=== PATIENT | female | born 1960 | race Caucasian/White ===

== ENCOUNTER 2019-02-18 15:00 | Inpatient (IN) | payer MEDICARE, OTHER ==
[~2019-02-18] VITALS: Ht 312.4 cm; Wt 69.9 kg
[2019-02-18] MEDS ORDERED: METOCLOPRAMIDE HCL 10MG/2ML VIAL IV STA (15:30)
[2019-02-18] MEDS ORDERED: ONDANSETRON HCL 4MG/2ML INJ IV STA (15:30)
[2019-02-18] MEDS ORDERED: SODIUM CHLORIDE 0.9% 1,000 ML IV ONE (15:30)
[2019-02-18 15:57] LABS: BASOPHILS % 0.3 % (0.0-2.0); CHLORIDE 112 mEq/L (98-107); EOSINOPHILS % 0.7 % (0.0-5.0); LYMPHOCYTES % 38.9 % (20.0-50.0); MEAN CORPUSCULAR HEMOGLOBIN 28.9 pg (28.0-32.0); MEAN CORPUSCULAR VOLUME 86.5 fL (81.0-99.0); MEAN PLATELET VOLUME 6.9 fl (7.4-10.4); MONOCYTES % 4.6 % (2.0-8.0); NEUTROPHILS % 55.5 % (40.0-76.0); PLATELET 415 x1000/uL (130-400); RED BLOOD CELL COUNT 4.85 mill/uL (4.2-5.4); RED CELL DISTRIBUTION WIDTH 13.8 % (11.6-14.6)
[2019-02-18 15:59] LABS: PROTHROMBIN TIME 10.5 sec (9.6-11.0)
[2019-02-18 16:16] LABS: HCG SCREEN INDETERMINATE
[2019-02-18 16:21] LABS: CLARITY URINE TURBID (CLEAR); COLOR URINE YELLOW (YELLOW); KETONES URINE 1+ (NEGATIVE); LEUKOCYTE ESTERASE URINE TRACE (NEGATIVE); NITRITE URINE NEGATIVE (NEGATIVE); OCCULT BLOOD URINE NEGATIVE (NEGATIVE); PH URINE 7.5 (4.5-8.0); PROTEIN URINE TRACE (NEGATIVE); SPECIFIC GRAVITY URINE 1.016 (1.005-1.030)
[2019-02-18] MEDS ORDERED: MORPHINE SULFATE 4 MG/ML CPJ (NOT FOR IM USE) IV ONE (18:15)
[2019-02-18] MEDS ORDERED: METRONIDAZOLE 500 MG PREMIX 100 ML IV ONE (18:15)
[2019-02-18] MEDS ORDERED: CEFTRIAXONE 1 G PREMIX 50 ML IV ONE (18:15)
[2019-02-18] MEDS ORDERED: ONDANSETRON HCL 4MG/2ML INJ IV ONE (18:15)
[2019-02-18 21:30] VITALS: BP 107/66
[2019-02-18 22:12] VITALS: BP 107/66
[2019-02-19] VITALS: BP 104/65
[2019-02-19] MEDS ORDERED: KETOROLAC 30MG/ML VIAL IV PRN
[2019-02-19] MEDS ORDERED: METRONIDAZOLE 500 MG PREMIX 100 ML IV SCH (02:00)
[2019-02-19 04:00] VITALS: BP 96/56
[2019-02-19] MEDS ORDERED: TOPI200T15 MT (04:00)
[2019-02-19] MEDS ORDERED: DIPH50CA38 PO (04:00)
[2019-02-19] MEDS ORDERED: OXYB5TAB11 MT (04:00)
[2019-02-19] MEDS ORDERED: PRAZ1CAP5 MT (04:00)
[2019-02-19] MEDS ORDERED: DIPH50CA4 PO (04:00)
[2019-02-19] MEDS ORDERED: BENZ2TAB7 MT (04:00)
[2019-02-19] MEDS ORDERED: LURA120T PO (04:00)
[2019-02-19] MEDS ORDERED: TRAZ150T78 MT (04:00)
[2019-02-19] MEDS ORDERED: OMEP20TA2 MT (04:00)
[2019-02-19] MEDS ORDERED: NAPR-681 MT (04:00)
[2019-02-19] MEDS ORDERED: HYDR100C2 MT (04:00)
[2019-02-19] MEDS: ONDANSETRON HCL 4MG/2ML INJ IV PRN ×3 (04:32→20:28)
[2019-02-19] MEDS: METRONIDAZOLE 500 MG PREMIX 100 ML IV SCH ×3 (06:00→23:29)
[2019-02-19] MEDS ORDERED: SODIUM CHLORIDE 0.9% 1,000 ML IV SCH ×2 (06:00)
[2019-02-19] MEDS ORDERED: BUPIVACAINE HCL 0.5% (5MG/ML) 50ML ONE (07:46)
[2019-02-19] MEDS ORDERED: SKIN ADHESIVE 0.7 GM EA TOP ONE (07:46)
[2019-02-19 08:00] VITALS: BP 105/69
[2019-02-19] MEDS ORDERED: METRONIDAZOLE 500 MG PREMIX 0 ML IV ONE (08:03)
[2019-02-19] MEDS ORDERED: LEVOFLOXACIN 500MG PREMIX 100 ML IV ONE (08:03)
[2019-02-19] MEDS: ENOXAPARIN 40MG/0.4ML SYR SUBCUT SCH (08:18)
[2019-02-19] MEDS ORDERED: PROPOFOL 200MG/20ML VIAL IV ONE (09:23)
[2019-02-19] MEDS ORDERED: MIDAZOLAM HCL 2 MG/2 ML VIAL ONE (09:23)
[2019-02-19] MEDS ORDERED: FENTANYL CITRATE/PF 50MCG/ML 2ML VIAL ONE (09:23)
[2019-02-19] MEDS ORDERED: SUCCINYLCHOLINE CHLORIDE 200MG/10ML IV ONE ×2 (09:24→09:37)
[2019-02-19] MEDS ORDERED: ROCURONIUM BROMIDE 10MG/ML VIAL 5ML IV ONE (09:24)
[2019-02-19] MEDS ORDERED: LIDOCAINE HCL/PF 1% 10 MG/ML 5ML VIAL ONE (09:24)
[2019-02-19] MEDS ORDERED: ACETAMINOPHEN 325MG TABLET PO PRN (09:30)
[2019-02-19] MEDS ORDERED: ONDANSETRON HCL 4MG/2ML INJ IV PRN (09:30)
[2019-02-19] MEDS ORDERED: HYDROCODONE/ACETAMINOPHEN 5/325MG TABLET PO PRN (09:30)
[2019-02-19] MEDS ORDERED: MORPHINE SULFATE 4 MG/ML CPJ (NOT FOR IM USE) IV PRN (09:30)
[2019-02-19] MEDS ORDERED: NEOSTIGMINE METHYLSULFATE 1MG/ML 10 ML VIAL ONE (10:04)
[2019-02-19] MEDS ORDERED: GLYCOPYRROLATE 0.2 MG/ML 2ML VIAL ONE (10:04)
[2019-02-19] MEDS ORDERED: ONDANSETRON HCL 4MG/2ML INJ ONE (10:22)
[2019-02-19] MEDS ORDERED: DEXAMETHASONE 4MG/ML 1ML VIAL ONE (10:29)
[2019-02-19] MEDS ORDERED: HYDROMORPHONE HCL/PF 2MG/ML CPJ ONE (11:01)
[2019-02-19] MEDS: HYDROMORPHONE HCL/PF 2MG/ML CPJ IV PRN ×4 (11:03→11:30)
[2019-02-19] MEDS: DEXT 5%/0.45% NACL KCL 20MEQ/L 1,000 ML IV SCH (13:21)
[2019-02-19] MEDS: MORPHINE SULFATE 4 MG/ML CPJ (NOT FOR IM USE) IV PRN ×3 (13:32→20:19)
[2019-02-19] MEDS ORDERED: HYDROXYZINE 25MG TABLET PO PRN (15:30)
[2019-02-19 16:00] VITALS: BP 133/75
[2019-02-19] MEDS: CEFTRIAXONE 1 G PREMIX 50 ML IV SCH (17:03)
[2019-02-19 20:00] VITALS: BP 125/85
[2019-02-19] MEDS: TOPIRAMATE 100MG TABLET PO SCH (23:28)
[2019-02-19] MEDS: TRAZODONE HCL 100MG TABLET PO SCH (23:28)
[2019-02-19] MEDS: BENZTROPINE MESYLATE 2MG TABLET PO SCH (23:28)
[2019-02-20] VITALS: BP 120/81
[2019-02-20] MEDS: MORPHINE SULFATE 4 MG/ML CPJ (NOT FOR IM USE) IV PRN ×2 (01:36→13:31)
[2019-02-20 01:40] LABS: BASOPHILS % 0.3 % (0.0-2.0); EOSINOPHILS % 0.1 % (0.0-5.0); HEMATOCRIT. 36.1 % (36.0-48.0); HEMOGLOBIN. 12.1 g/dL (12.0-16.0); LYMPHOCYTES % 22.8 % (20.0-50.0); MEAN CORPUSCULAR VOLUME 86.2 fL (81.0-99.0); MEAN PLATELET VOLUME 7.3 fl (7.4-10.4); MONOCYTES % 6.9 % (2.0-8.0); NEUTROPHILS % 69.9 % (40.0-76.0); PLATELET 302 x1000/uL (130-400); RED BLOOD CELL COUNT 4.19 mill/uL (4.2-5.4); RED CELL DISTRIBUTION WIDTH 13.7 % (11.6-14.6)
[2019-02-20 01:59] LABS: CHLORIDE 108 mEq/L (98-107)
[2019-02-20 04:00] VITALS: BP 128/75
[2019-02-20] MEDS: DEXT 5%/0.45% NACL KCL 20MEQ/L 1,000 ML IV SCH ×2 (05:25→18:25)
[2019-02-20] MEDS: METRONIDAZOLE 500 MG PREMIX 100 ML IV SCH ×3 (05:26→22:00)
[2019-02-20] MEDS: ONDANSETRON HCL 4MG/2ML INJ IV PRN ×2 (05:26→20:04)
[2019-02-20] MEDS: SODIUM CHLORIDE 0.9% INJ 3ML FLUSH IVF SCH ×2 (05:45→14:04)
[2019-02-20] MEDS: OMEPRAZOLE 20MG CAPSULE EXTENDED RELEASE PO SCH (06:23)
[2019-02-20 06:36] LABS: BASOPHILS % 0.2 % (0.0-2.0); EOSINOPHILS % 0.6 % (0.0-5.0); HEMATOCRIT. 32.2 % (36.0-48.0); LYMPHOCYTES % 30.3 % (20.0-50.0); MEAN CORPUSCULAR HEMOGLOBIN 29.4 pg (28.0-32.0); MEAN CORPUSCULAR VOLUME 86.3 fL (81.0-99.0); MEAN PLATELET VOLUME 6.8 fl (7.4-10.4); MONOCYTES % 8.1 % (2.0-8.0); NEUTROPHILS % 60.8 % (40.0-76.0); PLATELET 282 x1000/uL (130-400); RED BLOOD CELL COUNT 3.73 mill/uL (4.2-5.4); RED CELL DISTRIBUTION WIDTH 13.7 % (11.6-14.6)
[2019-02-20 06:55] LABS: CHLORIDE 111 mEq/L (98-107)
[2019-02-20 08:00] VITALS: BP 111/65
[2019-02-20] MEDS: ENOXAPARIN 40MG/0.4ML SYR SUBCUT SCH (08:46)
[2019-02-20] MEDS: BENZTROPINE MESYLATE 2MG TABLET PO SCH ×2 (08:46→22:00)
[2019-02-20] MEDS: TOPIRAMATE 100MG TABLET PO SCH ×2 (08:46→22:01)
[2019-02-20] MEDS ORDERED: POTASSIUM CHLORIDE 20MEQ TABLET SR PO NR (09:00)
[2019-02-20 11:40] VITALS: BP 108/71
[2019-02-20 15:31] VITALS: BP 103/68
[2019-02-20] MEDS: CEFTRIAXONE 1 G PREMIX 50 ML IV SCH (17:06)
[2019-02-20 20:00] VITALS: BP 114/75
[2019-02-20] MEDS: TRAZODONE HCL 100MG TABLET PO SCH (22:01)
[2019-02-21 00:46] VITALS: BP 98/72
[2019-02-21] MEDS: HYDROCODONE/ACETAMINOPHEN 5/325MG TABLET PO PRN ×3 (02:49→21:40)
[2019-02-21 03:49] VITALS: BP 105/66
[2019-02-21] MEDS: DEXT 5%/0.45% NACL KCL 20MEQ/L 1,000 ML IV SCH ×2 (06:00→18:37)
[2019-02-21] MEDS: OMEPRAZOLE 20MG CAPSULE EXTENDED RELEASE PO SCH (06:00)
[2019-02-21] MEDS: SODIUM CHLORIDE 0.9% INJ 3ML FLUSH IVF SCH ×3 (06:01→21:36)
[2019-02-21] MEDS: METRONIDAZOLE 500 MG PREMIX 100 ML IV SCH ×3 (06:01→21:23)
[2019-02-21 06:13] LABS: BASOPHILS % 0.4 % (0.0-2.0); EOSINOPHILS % 1.7 % (0.0-5.0); HEMATOCRIT. 33.1 % (36.0-48.0); HEMOGLOBIN. 11.3 g/dL (12.0-16.0); MEAN CORPUSCULAR HEMOGLOBIN 29.6 pg (28.0-32.0); MEAN CORPUSCULAR VOLUME 86.8 fL (81.0-99.0); MEAN PLATELET VOLUME 7.1 fl (7.4-10.4); NEUTROPHILS % 57.9 % (40.0-76.0); PLATELET 268 x1000/uL (130-400); RED BLOOD CELL COUNT 3.82 mill/uL (4.2-5.4); RED CELL DISTRIBUTION WIDTH 13.3 % (11.6-14.6)
[2019-02-21 06:43] LABS: CHLORIDE 112 mEq/L (98-107)
[2019-02-21 08:00] VITALS: BP 90/60
[2019-02-21] MEDS: BENZTROPINE MESYLATE 2MG TABLET PO SCH ×2 (10:13→21:22)
[2019-02-21] MEDS: TOPIRAMATE 100MG TABLET PO SCH ×2 (10:13→21:22)
[2019-02-21] MEDS: ENOXAPARIN 40MG/0.4ML SYR SUBCUT SCH ×2 (10:13→10:21)
[2019-02-21 12:00] VITALS: BP 99/66
[2019-02-21] MEDS: ONDANSETRON HCL 4MG/2ML INJ IV PRN (15:03)
[2019-02-21 16:00] VITALS: BP 87/62
[2019-02-21] MEDS: CEFTRIAXONE 1 G PREMIX 50 ML IV SCH (18:36)
[2019-02-21] MEDS ORDERED: METOCLOPRAMIDE 10MG/10 ML UDC PO PRN (19:00)
[2019-02-21 20:00] VITALS: BP 99/66
[2019-02-21] MEDS: TRAZODONE HCL 100MG TABLET PO SCH (21:23)
[2019-02-22] VITALS (9 sets, daily range): BP systolic 82–98; BP diastolic 53–67
[2019-02-22] MEDS: METRONIDAZOLE 500 MG PREMIX 100 ML IV SCH ×3 (05:23→21:50)
[2019-02-22] MEDS: DEXT 5%/0.45% NACL KCL 20MEQ/L 1,000 ML IV SCH (05:23)
[2019-02-22 06:29] LABS: BASOPHILS % 0.3 % (0.0-2.0); EOSINOPHILS % 2.1 % (0.0-5.0); HEMATOCRIT. 35.1 % (36.0-48.0); HEMOGLOBIN. 11.8 g/dL (12.0-16.0); LYMPHOCYTES % 40.9 % (20.0-50.0); MEAN CORPUSCULAR HEMOGLOBIN 29.1 pg (28.0-32.0); MEAN CORPUSCULAR VOLUME 86.3 fL (81.0-99.0); MEAN PLATELET VOLUME 6.9 fl (7.4-10.4); MONOCYTES % 9.9 % (2.0-8.0); NEUTROPHILS % 46.8 % (40.0-76.0); PLATELET 267 x1000/uL (130-400); RED BLOOD CELL COUNT 4.06 mill/uL (4.2-5.4); RED CELL DISTRIBUTION WIDTH 13.7 % (11.6-14.6)
[2019-02-22] MEDS: SODIUM CHLORIDE 0.9% INJ 3ML FLUSH IVF SCH ×3 (06:30→22:11)
[2019-02-22] MEDS ORDERED: SODIUM CHLORIDE 0.9% 250 ML IV SCH (06:30)
[2019-02-22 06:46] LABS: CHLORIDE 114 mEq/L (98-107)
[2019-02-22] MEDS: OMEPRAZOLE 20MG CAPSULE EXTENDED RELEASE PO SCH (07:20)
[2019-02-22] MEDS: ENOXAPARIN 40MG/0.4ML SYR SUBCUT SCH (09:35)
[2019-02-22] MEDS: TOPIRAMATE 100MG TABLET PO SCH ×2 (09:36→20:21)
[2019-02-22] MEDS: BENZTROPINE MESYLATE 2MG TABLET PO SCH ×2 (09:36→20:22)
[2019-02-22] MEDS: ONDANSETRON HCL 4MG/2ML INJ IV PRN (11:52)
[2019-02-22] MEDS: CEFTRIAXONE 1 G PREMIX 50 ML IV SCH (18:23)
[2019-02-22] MEDS: TRAZODONE HCL 100MG TABLET PO SCH (20:21)
[2019-02-23] VITALS: BP 85/53
[2019-02-23 04:00] VITALS: BP 107/66
[2019-02-23] MEDS: SODIUM CHLORIDE 0.9% INJ 3ML FLUSH IVF SCH (06:06)
[2019-02-23] MEDS: METRONIDAZOLE 500 MG PREMIX 100 ML IV SCH ×2 (06:06→13:35)
[2019-02-23] MEDS: OMEPRAZOLE 20MG CAPSULE EXTENDED RELEASE PO SCH (06:24)
[2019-02-23 06:54] LABS: BASOPHILS % 0.2 % (0.0-2.0); EOSINOPHILS % 1.9 % (0.0-5.0); HEMATOCRIT. 35.8 % (36.0-48.0); HEMOGLOBIN. 12.1 g/dL (12.0-16.0); LYMPHOCYTES % 34.1 % (20.0-50.0); MEAN PLATELET VOLUME 6.9 fl (7.4-10.4); MONOCYTES % 9.3 % (2.0-8.0); NEUTROPHILS % 54.5 % (40.0-76.0); PLATELET 288 x1000/uL (130-400); RED BLOOD CELL COUNT 4.16 mill/uL (4.2-5.4); RED CELL DISTRIBUTION WIDTH 13.7 % (11.6-14.6)
[2019-02-23 07:01] LABS: CHLORIDE 115 mEq/L (98-107)
[2019-02-23 08:00] VITALS: BP 94/69
[2019-02-23] MEDS: ENOXAPARIN 40MG/0.4ML SYR SUBCUT SCH (09:15)
[2019-02-23] MEDS: TOPIRAMATE 100MG TABLET PO SCH (09:15)
[2019-02-23] MEDS: BENZTROPINE MESYLATE 2MG TABLET PO SCH (09:16)
[2019-02-23] MEDS: DEXT 5%/0.45% NACL KCL 20MEQ/L 1,000 ML IV SCH (11:25)
[2019-02-23 11:33] VITALS: BP 96/69
[2019-02-23 15:31] VITALS: BP 99/71
[2019-02-23 17:24] VITALS: BP 101/67
[2019-02-24] MEDS ORDERED: FAMOTIDINE 20MG TABLET PO SCH (09:00)
== END 2019-02-23 19:05 | disposition home or self-care (01) | DRG 418 ==
LOC: ER 15:00 → 6EST 19:24 → EDBEDREQTM 19:40 → EDBEDREQ 19:40 → ENRESERV 20:33
PROVIDERS: ADMIT Internal Medicine; ATTEND Internal Medicine
PROC: 0FT44ZZ Resection of Gallbladder, Percutaneous Endoscopic Approach (ICD-10-PCS; principal; 2019-02-19)
DX: K80.00 Calculus of gallbladder with acute cholecystitis without obstruction (principal); K56.7 Ileus, unspecified; K76.89 Other specified diseases of liver; F31.9 Bipolar disorder, unspecified; F41.9 Anxiety disorder, unspecified; R73.9 Hyperglycemia, unspecified; R74.0 Nonspecific elevation of levels of transaminase and lactic acid dehydrogenase [LDH]; I95.9 Hypotension, unspecified; Z79.899 Other long term (current) drug therapy
CPT/HCPCS: 36415; 74018; 74150; 74176; 76705; 80048; 80076; 83036; 84702; 84703; 86850; 86900; 88304; 93005; 96365; 96366; 96368; 96375; 99285; J0330; J0696; J1100; J1170; J1650; J1885; J1956; J2250; J2270; J2405; J2704; J2710; J2765; J3010; J3490; J7030; J7050; J8597

== ENCOUNTER 2019-06-20 10:03 | Emergency (ER) | payer MEDICARE, OTHER ==
[~2019-06-20] VITALS: Ht 154.9 cm; Wt 63.0 kg
[~2019-06-20 10:03] MED LIST: BENZ2TAB7 MT; DIPH50CA38 PO; DIPH50CA4 PO; HYDR100C2 MT; LURA120T PO; NAPR-681 MT; OMEP20TA2 MT; OXYB5TAB11 MT; PRAZ1CAP5 MT; TOPI200T15 MT; TRAZ150T78 MT
[2019-06-20] MEDS ORDERED: SODIUM CHLORIDE 0.9% 1,000 ML IV ONE (10:20)
[2019-06-20 11:47] LABS: CLARITY URINE CLEAR (CLEAR); COLOR URINE YELLOW (YELLOW); KETONES URINE NEGATIVE (NEGATIVE); LEUKOCYTE ESTERASE URINE NEGATIVE (NEGATIVE); NITRITE URINE NEGATIVE (NEGATIVE); OCCULT BLOOD URINE NEGATIVE (NEGATIVE); PH URINE 6.5 (4.5-8.0); PROTEIN URINE NEGATIVE (NEGATIVE); SPECIFIC GRAVITY URINE 1.009 (1.005-1.030); UROBILINOGEN URINE 0.2 E.U./dL (0.2-1.0)
[2019-06-20 11:49] LABS: BASOPHILS % 0.2 % (0.0-2.0); EOSINOPHILS % 1.1 % (0.0-5.0); HEMATOCRIT. 36.9 % (36.0-48.0); HEMOGLOBIN. 12.7 g/dL (12.0-16.0); LYMPHOCYTES % 27.7 % (20.0-50.0); MEAN CORPUSCULAR VOLUME 86.7 fL (81.0-99.0); MEAN PLATELET VOLUME 6.9 fl (7.4-10.4); MONOCYTES % 6.1 % (2.0-8.0); NEUTROPHILS % 64.9 % (40.0-76.0); PLATELET 349 x1000/uL (130-400); RED BLOOD CELL COUNT 4.25 mill/uL (4.2-5.4); RED CELL DISTRIBUTION WIDTH 13.7 % (11.6-14.6)
[2019-06-20 11:54] LABS: CHLORIDE 111 mEq/L (98-107)
[2019-06-20 12:01] LABS: ETHANOL BLOOD < 10 mg/dL
[2019-06-20 12:09] LABS: *AMPHETAMINES SCREEN URINE NEGATIVE (NEGATIVE); *BARBITURATES SCREEN URINE NEGATIVE (NEGATIVE); *BENZODIAZEPINES SCREEN URINE NEGATIVE (NEGATIVE); *COCAINE SCREEN URINE NEGATIVE (NEGATIVE); METHADONE URINE SCREEN NEGATIVE (NEGATIVE)
[2019-06-20 12:10] LABS: CANNABINOID URINE SCREEN NEGATIVE (NEGATIVE); OPIATES URINE SCREEN NEGATIVE (NEGATIVE); PHENCYCLIDINE URINE SCREEN NEGATIVE (NEGATIVE)
[2019-06-20 14:04] VITALS: BP 113/75
== END 2019-06-20 17:11 | disposition home or self-care (01) ==
LOC: ER 10:03
DX: T43.591A Poisoning by other antipsychotics and neuroleptics, accidental (unintentional), initial encounter (principal); Y92.89 Other specified places as the place of occurrence of the external cause; F41.9 Anxiety disorder, unspecified; F31.9 Bipolar disorder, unspecified; Z79.899 Other long term (current) drug therapy
CPT/HCPCS: 36415; 80053; 80305; 80307; 80320; 80329; 81003; 85025; 93005; 99284; J7030; G0480

== ENCOUNTER 2019-08-11 12:58 | Emergency (ER) | payer MEDICARE, MEDICAID ==
[~2019-08-11] VITALS: Ht 157.5 cm; Wt 60.0 kg
[2019-08-11] MEDS ORDERED: SODIUM CHLORIDE 0.9% 1,000 ML IV ONE (14:03)
[2019-08-11] MEDS ORDERED: METOCLOPRAMIDE HCL 10MG/2ML VIAL IV ONE (14:15)
[2019-08-11] MEDS ORDERED: MECLIZINE 25MG TABLET PO ONE (14:15)
[2019-08-11] MEDS ORDERED: DIPHENHYDRAMINE 50MG/ML VIAL IV ONE (14:15)
[2019-08-11 14:30] LABS: BASOPHILS % 0.4 % (0.0-2.0); EOSINOPHILS % 1.4 % (0.0-5.0); HEMATOCRIT. 35.5 % (36.0-48.0); HEMOGLOBIN. 12.1 g/dL (12.0-16.0); LYMPHOCYTES % 43.9 % (20.0-50.0); MEAN CORPUSCULAR HEMOGLOBIN 29.5 pg (28.0-32.0); MEAN CORPUSCULAR VOLUME 86.9 fL (81.0-99.0); MEAN PLATELET VOLUME 6.8 fl (7.4-10.4); MONOCYTES % 8.5 % (2.0-8.0); NEUTROPHILS % 45.8 % (40.0-76.0); PLATELET 315 x1000/uL (130-400); RED BLOOD CELL COUNT 4.09 mill/uL (4.2-5.4); RED CELL DISTRIBUTION WIDTH 13.9 % (11.6-14.6)
[2019-08-11 14:43] LABS: CHLORIDE 115 mEq/L (98-107)
[2019-08-11 17:12] VITALS: BP 103/68
== END 2019-08-11 17:16 | disposition home or self-care (01) ==
LOC: ER 12:58
DX: R42 Dizziness and giddiness (principal); R51 Headache; G31.9 Degenerative disease of nervous system, unspecified; R03.0 Elevated blood-pressure reading, without diagnosis of hypertension; R90.82 White matter disease, unspecified
CPT/HCPCS: 36415; 70450; 71045; 80053; 83880; 84484; 85025; 93005; 96361; 96374; 96375; 99284; J1200; J2765; J7030; J8597

== ENCOUNTER 2019-10-21 15:51 | Emergency (ER) | payer MEDICARE, MEDICAID ==
[~2019-10-21] VITALS: Ht 157.5 cm; Wt 68.0 kg
[2019-10-21 15:54] VITALS: BP 114/85
== END 2019-10-21 19:45 | disposition home or self-care (01) ==
LOC: ER 15:51
DX: F32.9 Major depressive disorder, single episode, unspecified (principal); F41.9 Anxiety disorder, unspecified; Z85.9 Personal history of malignant neoplasm, unspecified; Z79.899 Other long term (current) drug therapy
CPT/HCPCS: 99283